=== PATIENT | female | born 1955 | race Caucasian/White ===

== ENCOUNTER 2023-07-01 15:46 | Emergency (ER) | payer MEDICARE, BC ==
[~2023-07-01] VITALS: Ht 180.3 cm; Wt 98.7 kg
[~2023-07-01 15:46] MED LIST: ALEVE220 MG PO; ALTOPREV20 MG PO; AMLODIPINE BESY10 MG PO; BISOPROLOL FUMA10 MG PO; CELECOXIB200 MG PO; DOXAZOSIN MESYLA2 MG PO; HYZAAR 100-251 EACH PO; LOSARTAN POTAS100 MG PO; METFORMIN HCL1000 M1 PO; OXYCODONE HCL5 MG PO; PIOGLITAZONE HC30 MG PO; SENNA LAX8.6 MG PO
[2023-07-01] MEDS ORDERED: NAPROXEN 500 MG TAB PO ONE (19:45)
[2023-07-01] MEDS ORDERED: HYDROCODONE/ACETA 7.5/325 TAB PO ONE (19:45)
[2023-07-01] MEDS ORDERED: HYDROCODON-ACE1 EA11 PO (19:46)
[2023-07-01 20:03] VITALS: BP 107/78
== END 2023-07-01 20:04 | disposition home or self-care (01) ==
LOC: ED 15:46
DX: M19.071 Primary osteoarthritis, right ankle and foot (principal); G89.29 Other chronic pain; E11.9 Type 2 diabetes mellitus without complications; I10 Essential (primary) hypertension; F17.200 Nicotine dependence, unspecified, uncomplicated; Z88.5 Allergy status to narcotic agent; Z79.899 Other long term (current) drug therapy; Z79.84 Long term (current) use of oral hypoglycemic drugs
CPT/HCPCS: 73610; 99283-25; A9270

== ENCOUNTER 2024-10-01 09:12 | Emergency (ER) | payer MEDICARE, BC ==
[~2024-10-01] VITALS: Ht 180.3 cm; Wt 100.7 kg
[~2024-10-01 09:12] MED LIST changes: +HYDROCODON-ACE1 EA11 PO
[2024-10-01 09:28] LABS: BASOPHILS 0.2 % (0.1-1.2); EOSINOPHILS 0 % (0.7-5.8); HEMATOCRIT 36.5 % (34.1-44.9); HEMOGLOBIN 11.6 g/dL (11.2-15.7); LYMPHOCYTES 8.2 % (19.3-51.7); MCHC 31.8 g/dL (32.2-35.5); MCV 94.3 fL (79.4-94.8); MONOCYTES 7.3 % (4.7-12.5); NEUTROPHILS 83.8 % (34.0-71.1); PLATELET COUNT 245 K/uL (182-369); RBC 3.87 M/uL (3.93-5.22)
[2024-10-01 09:47] LABS: ALBUMIN 2.9 g/dL (3.4-5.0); ALBUMIN/GLOBULIN RATIO 0.78 (1.1-2.4); ALCOHOL, MEDICAL <3 ng/dL (<3); ALKALINE PHOSPHATASE 61 U/L (46-116); ALT (SGPT) 18 U/L (14-59); ANION GAP 12.5 (7-21); AST (SGOT) 14 U/L (15-37); BILIRUBIN, TOTAL 0.7 mg/dL (0.2-1.0); BUN/CREATININE RATIO 12.67 (6.0-28.6); CALCIUM 8.4 mg/dL (8.5-10.1); CARBON DIOXIDE 29 mmol/L (21-32); CHLORIDE 100 mmol/L (98-107); CREATININE, SERUM 0.71 mg/dL (0.55-1.02); GLOMERULAR FILTRATION RATE,EST 93 mL/min (>60); PROTEIN, TOTAL 6.6 g/dL (6.4-8.2); UREA NITROGEN 9 mg/dL (7-18)
[2024-10-01 09:51] LABS: POTASSIUM 2.5 mmol/L (3.5-5.1)
[2024-10-01 10:02] LABS: ABO O; ANTIBODY SCREEN NEGATIVE; RH POSITIVE
[2024-10-01] MEDS ORDERED: HYDROmorphone HCL 1 MG/ML SYR IV PRN (10:15)
[2024-10-01] MEDS ORDERED: LACTATED RINGER'S 1,000 ML IV SCH (11:30)
[2024-10-01 15:15] VITALS: BP 131/61
--- NOTE | 2024-10-01 22:31 | EKG ---
[facility] [address] [facility] [place] [address] Signed Normal sinus rhythm Nonspecific T wave abnormality Abnormal ECG When compared with ECG of 03-SEP-2022 10:47, Nonspecific T wave abnormality now evident in Inferior leads Nonspecific T wave abnormality now evident in Lateral leads QT has shortened Confirmed by Merissa Dailey MD () on 10/01/2024 10:30:47 PM Electronically Signed By: MERISSA DAILEY MD 10/01/242230 PATIENT NAME: BRENDON FONG Electrocardiogram DATE OF : 59 PHYSICIAN: MERISSA DAILEY MD REPORT #: [id number] REPORT IS CONFIDENTIAL AND NOT TO BE RELEASED WITHOUT AUTHORIZATION
== END 2024-10-01 15:15 | disposition home or self-care (01) ==
LOC: ED 09:12
PROVIDERS: Emergency Medicine
DX: S72.002A Fracture of unspecified part of neck of left femur, initial encounter for closed fracture (principal); E11.9 Type 2 diabetes mellitus without complications; I10 Essential (primary) hypertension; E78.00 Pure hypercholesterolemia, unspecified; F17.200 Nicotine dependence, unspecified, uncomplicated; X58.XXXA Exposure to other specified factors, initial encounter; Z79.899 Other long term (current) drug therapy; Z88.5 Allergy status to narcotic agent
CPT/HCPCS: 36415; 70450; 71045; 73502; 80053; 80307; 82550; 85025; 86850; 86900; 86901; 93005; 93010; 96374; 99284-25; G0480; J1171; J7121